=== PATIENT | female | born 1970 | race African-American/Black ===

== ENCOUNTER 2018-04-08 00:11 | Emergency (ER) | payer OTHER ==
[2018-04-08] MEDS: DEXAMETHASONE 10 MG/ML 1 ML INJ PO (00:49)
== END 2018-04-08 01:05 | disposition home or self-care (01) ==
LOC: FTE 00:11
DX: S60.561A Insect bite (nonvenomous) of right hand, initial encounter (principal); I10 Essential (primary) hypertension; W57.XXXA Bitten or stung by nonvenomous insect and other nonvenomous arthropods, initial encounter; Y92.009 Unspecified place in unspecified non-institutional (private) residence as the place of occurrence of the external cause
CPT/HCPCS: 99284; J1100